=== PATIENT | male | born 2000 | race Caucasian/White ===

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

== ENCOUNTER 2024-05-30 08:00 | Outpatient (RCR) | payer BC, SELFPAY ==
--- NOTE | 2024-05-30 10:15 | BH.SGPN.GN ---
Behaviors/Verbalizations/Mental Status: []Pt alert and oriented, neatly dressed and groomed. Eye contact good. Motor activity appropriate. Speech within normal limits. Affect flat, mood depressed. Thoughts linear, logical, no signs of hallucinations or delusions. Client Response/Progress/Benefit: [] Pt engaged and participating in discussion at times, taking notes. Pt attentive during psychoeducation about the window of tolerance and noted personal connections. Group identified what contributes to low distress tolerance. The group gained awareness of the three zones of tolerance and pt was able to identify what they look like in each zone. Pt noted that in the hyperarousal zone pt gets confrontational and defensive. In Hypoarousal, pt shtus down. When pt is in the window of tolerance, Pt feels calm and feels he makes good decisions. Pt appeared to benefit from psychoeducation on distress tolerance and practicing self-reflection. Pt will continue IOP tx to prevent decompensation, improve daily functioning, and increase use of healthy coping skills. Narrative Note: []
--- NOTE | 2024-05-30 10:31 | BH.COMM ---
Communication Note Communication with Client Communication Note: Met with pt to complete initial paperwork and administer the CSSR-S screening and risk assessment. Pt is a moderate risk as pt denies any active SI, plan, or intent, but he has daily passive SI. Pt reports history of one suicide attempt about two years ago following a conflict with his girlfriend at the time. Pt reported he took ?a bunch of Ambien and drank almost an entire 750ml bottle of liquor.? Pt denies getting medical attention or hospitalized for this attempt. History of self-harm by cutting two years ago. Denies having any weapons at home. Pt is future oriented. Pt reports ability to maintain safety today. Discussed case with Dr. Christensen and pt will be admitted to [facility] tx with a diagnosis of Bipolar II disorder, most recent episode depressed without psychosis F 31.81
--- NOTE | 2024-05-30 10:31 | BH.MTP ---
Master Treatment Plan Patient Information Program Physician:: Dr. 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 Description of Barriers: Pt reports daily marijuana use, significant trauma history that continues to impact pt, and negative core beliefs. Pt also has history of impulsive behavior from [place] that has led to dropping out of college and legal issues. Pt also has history of cocaine and hallucingen use. Functional Impact: Pt is a 23 year-old male with a history of bipolar II disorder, anxiety, PTSD, and polysubstance use disorder. Pt was referred to [facility] by a family friend due to worsening symptoms of depression following the of pt's estranged father. Pt's symptoms have been impacting his ability to function and he recently had to drop out of college. At admission, pt endorses a depressed mood, excessive guilt, passive SI, lack of energy, lack of motivation, feeling like a burden, and anhedonia. Pt also reports irritability, restlessness, and isolation. Goal Relevant Strengths/Supports: Pt is sober from cocaine and hallucinogens. Pt is intelligent and has close friends. Objectives Objective #1: Stated Objective: Pt will learn and utilize 2-3 healthy coping strategies to better manage depressive symptoms and reduce suicidal ideations as shown by a decrease of DMS-5 symptoms for depression and SI. Interventions: Through group and individual sessions, therapist will help pt identify triggers and warning signs of depression and guilt including emotional, physical, and behavioral changes. Therapist will teach pt various coping skills to manage symptoms and give pt tangible resources to use to regulate emotions. Therapist will use cognitive restructuring techniques and help pt gain awareness of negative thoughts that reinforce guilt and depression. Therapist will provide psychoeducation on maintenance cycles and help pt learn ways to break unhealthy maintenance cycles. Therapist will help pt incorporate behavioral activation and assist pt in setting SMART goals. Discharge Criteria: Pt will have met this goal when can report learning and using at least 2 coping skills to manage depressive symptoms and reduce isolation. Additionally, pt will have met this goal when pt's DSM-5 scores for depression decrease. Target Date: 07/11/24 Review Date: 06/20/24 Status: open Objective #2: Stated Objective: Pt will identify at least 2-3 negative self-talk messages used to reinforce negative core beliefs, worthlessness, and isolation and replace thoughts with balanced, realistic messages. Interventions: Therapist will help pt identify distorted, negative beliefs about self and replace with more realistic, affirmative messages. Therapist will use CBT and DBT to help pt increase insight to the connection between thoughts, emotions, and behaviors. Therapist will encourage pt to practice thought challenging. Discharge Criteria: Pt will have achieved this goal when can verbalize at least 2 cognitive distortions and effectively replace those thoughts with affirmative messages. Target Date: 07/11/24 Review Date: 06/20/24 Status: open Problem/Goal #2 Problem/Goal #2 Stated Goal:: Will reduce intensity of anxiety and PTSD symptoms through increasing emotional regulation and distress tolerance skills Description of Barriers: Pt reports daily marijuana use, significant trauma history that continues to impact pt, and negative core beliefs. Pt also has history of impulsive behavior from [place] that has led to dropping out of college and legal issues. Pt also has history of cocaine and hallucingen use. Functional Impact: Pt is a 23 year-old male with a history of bipolar II disorder, anxiety, PTSD, and polysubstance use disorder. Pt was referred to [facility] by a family friend due to worsening symptoms of depression following the of pt's estranged father. Pt's symptoms have been impacting his ability to function and he recently had to drop out of college. At admission, pt endorses a depressed mood, excessive guilt, passive SI, lack of energy, lack of motivation, feeling like a burden, and anhedonia. Pt also reports irritability, restlessness, and isolation. Goal Relevant Strengths/Supports: Pt is sober from cocaine and hallucinogens. Pt is intelligent and has close friends. Objectives Objective #1: Stated Objective: Pt will increase ability to manage stressors and anxiety by gaining 2-3 distress tolerance skills. Interventions: Through group and individual therapy, pt will learn various coping skills to help manage stress and anxiety. Therapist will utilize DBT distress tolerance skills to increase awareness and give pt tools to more effectively manage anxiety. Therapist will provide psychoeducation on emotional regulation and help pt identify unhealthy coping skills she wants to change. Discharge Criteria: Pt will have accomplished this goal when can report improved ability to manage stressors and identify at least 2 distress tolerance skills. Target Date: 07/11/24 Review Date: 06/20/24 Status: open Objective #2: Stated Objective: Pt will identify 2-3 anxiety triggers and 2 coping skills to use when feeling anxious to manage anxiety as shown by reducing DSM-5 scores for anxiety Interventions: Therapist will provide education on anxiety, avoidance behaviors, and maintenance cycles. Therapist will help pt explore personal symptoms and warning signs of anxiety. Therapist will teach pt coping skills to improve emotional regulation, mindfulness, and distress tolerance to help pt cope with anxiety in the moment. Discharge Criteria: Pt will have accomplished this goal when he can identify at least 2 triggers and report using 2 coping skills to manage anxiety. Additionally, pt will have accomplished this goal AEB reduction of DSM-5 scores for anxiety. Target Date: 07/11/24 Review Date: 06/20/24 Status: open
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
--- NOTE | 2024-05-30 11:20 | BH.SGPN.GN ---
Behaviors/Verbalizations/Mental Status: []Pt alert and oriented, casually dressed and groomed. Eye contact good. Motor activity appropriate. Speech within normal limits. Affect congruent, mood anxious and depressed. Thoughts linear, logical, no signs of hallucinations or delusions. Client Response/Progress/Benefit: [] Pt first day on IOP, responded well to session AEB taking notes and contributing to discussion throughout. Pt engaged as group continued discussion on distress tolerance and the mental health benefits of widening their overall Window of Tolerance. Pt engaged with group in experiential activity provided input on connections between variables in the activity and distress tolerance. Worked within small groups to identify strategies to increase distress tolerance and reduce hyper-arousal and hypo-arousal states. Identified wanting to begin implementing distress tolerance skills of: edeep breathing, S.T.O.P.P, and showering. Pt appeared to benefit from gaining insight and learning strategies to increase distress tolerance. Pt will continue IOP tx to promote use of healthy coping skills, stabilize mood, and prevent decompensation. Narrative Note: []
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
--- NOTE | 2024-05-31 09:00 | BH.SGPN.GN ---
Behaviors/Verbalizations/Mental Status: [] Pt alert and oriented, casually dressed and groomed. Eye contact good. Motor activity appropriate. Speech within normal limits. Affect congruent, mood stressed and depressed. Thoughts linear, logical, no signs of hallucinations or delusions. Reviewed pt?s symptom tracker, no risk for suicidal ideation, plan, or intent 05/31/24 Client Response/Progress/Benefit: [] Pt was an active participant in group discussions. Attentive. Able to identify mental health wins including getting up and getting to group on time despite not being a morning person. Additional win noted as not allowing his frustration with car issues dictate his mood this morning. Shared use of deep breathing and thought challenging. Stressor noted as trying to get all of his things moved out of his dorm by tomorrow. Benefited from group support, encouragement, and feedback. Will continue in IOP to prevent decompensation, promote mood stability, and continue to improve use of thought challenging. Narrative Note: []
--- NOTE | 2024-05-31 10:45 | BH.NA_ITS ---
Physical Data Vital Signs Pulse Rate: 72 Blood Pressure: 123/63 Height/Weight Height: 1.73 m Weight:: 63.503 kg Weight in Pounds: 140.0 lbs Nutritional History Appetite Nutritional Instructions: Describe your appetite:: Fair Additional nutritional information:: Client states he has a decreased appetite and only eats 1 meal per day, but has not seen a change in his weight. Client states he has an ongoing issue with nausea at times and takes Zofran PRN. Functional Assessment Sleep Pattern Describe any problems with sleeping: Client states he sleeps 4-5 hours per night over the last week. Sensory/Communication Assess Communication Problems Do you have difficulty understanding what people are saying?: No Learning Assessment Education What is your level of education?: Some College Medical Problems/History Gastrointestinal Conditions Gastrointestinal: Nausea and Other (See comments) (GERD, potentially has gastroparesis) Pain Assessment Do you have acute or chronic pain?: No Surgical History Surgical History Have you had any surgeries? If so, list type and date:: Yes (wisdom teeth removal) Substance Abuse Substance Abuse Please describe substance abuse in the last 30 days:: Client states he drinks alcohol 1-2 times per week, usually 1-3 drinks each time (sometimes more drinks if he is with friends). Client states he has been vaping nicotine daily for 5-6 years. Client has a history of cocaine use but states he has not used in 3 years. Client uses marijuana daily, stating he used to use it during the day and evening but now only uses in the evening. Client drinks 1 caffeinated energy mixture in water daily. Mental Status Summary Mental Status Significant Findings/Observations on Appearance and Mood:: Client is alert and oriented x 4. Client is casually groomed. Client is cooperative with assessment. Client makes fair eye contact. Client's voice has normal rate and volume. Client has a mildly constricted. Client makes logical associations and has normal processing. Client states he has had delusions once in the past when manic, hearing his mom's voice when she was not there. Client denies active SI, denies plan/intent, but does admit to passive thoughts of (it would be better if I didn't wake up). Suicide Assessment Suicidal Ideation Are you currently or have you been suicidal in the past?: Yes Suicidal Intentional Rating Scale (SIRS): Suicidal thoughts (past) (passive thoughts of at times, denies intent or plan) Physician Notification Past Psychiatric History MH Treatment Hx Past Psychiatric Medications:: Client states he has been on many SSRI's and ADHD medications in the past, Tegretol, Zyprexa Age of first mental health symptoms: Client states he was first on medication or ADHD around age 6. Client states he was diagnosed as bipolar around age 20. Describe (age, circumstance, etc) any past hospitalizations: None, but did have one suicide attempt around 2021 (Ambien/alcohol). Current providers for mental health treatment (counselor, psychiatrist, immigration case manager, etc.): Abida Elias NP, at [facility] for psychiatry Fall Risk Assessment Age Age: Less than 60 Mental Status Mental Status: Willing & able to ask for assistance when needed Physical Status Physical Status: No problems Impairments Impairments: None Elimination Elimination: Continent AND independent Gait or Balance Gait or Balance: Walks independently Hx of Falls History of falls in the past 6 months: No known history Medications/Substances Psychotropics:: Mood stabilizers Medications/substances used within the past 24 hours or ordered to administer: 1-2 of the medications/substances listed above Total Score Total Points:: 1 RN Summary of Impressions Impressions Recommendations Impressions: Psychiatric Issues: 1. Bipolar 2 disorder (currently depressed) 2. Generalized anxiety disorder 3. PTSD 4. ADHD 5. 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 Level of Care How do the client's current symptoms and functional deficits support need for this level of care?: Client was referred to IOP by his mom for mental health. Client states he has been struggling some since February 2024 when his dad . Client states dad was a heroin user and he was estranged from him at the time of his . Client reports decreased appetite and decreased motivation since February. Client states he was failing his classes at the [employer] and had to drop out of college. Client denies active SI, but does report passive thoughts of why am I here? It would be better if I didn't wake up thoughts. IOP will promote gains and prevent further decompensation while providing social support and skills training.
--- NOTE | 2024-05-31 11:05 | BH.SGPN.GN ---
Behaviors/Verbalizations/Mental Status: []Client alert and oriented, casually dressed and groomed. Eye contact good. Motor activity appropriate. Speech within normal limits. Affect congruent, mood depressed. Thoughts linear, logical, no signs of hallucinations or delusions. Client Response/Progress/Benefit: [] Pt engaged in discussion reviewing different areas of self-care and completing self-assessment of current self-care, as well as providing input throughout discussion. Did well to complete self-care self-assessment worksheet. Pt identified how pt is doing in each category and what self-care activities pt wants to start using. Pt selected physical self-care to begin practicing more consistently. Pt plans to do this by ?I need to get active again and my diet is horrible.? Appeared to benefit from completing the self-care evaluation and gaining insights into current self-care practices, as well as identifying areas in which pt would like to improve upon. Pt will continue IOP tx to prevent decompensation, gain healthy coping skills, and improve daily functioning. ? Narrative Note: []
[2024-05-31 11:40] VITALS: BP 123/63; PULSE 72
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
--- NOTE | 2024-05-31 12:01 | BH.DR.ITP ---
Initial Treatment Plan Patient Information Visit Information: ADMISSION DATE: EXPECTED LOS: 4-6 weeks Problems/Symptoms Problem #1:: Depression Symptom:: Sadness, hopelessness, worthlessness, guilt, biological disruption of appetite, biological disruption of sleep, low energy, decreased concentration, passive thoughts of Problem #2:: Anxiety Symptom:: Worry, rumination, flashbacks, nightmares, avoidance
--- NOTE | 2024-06-02 09:00 | BH.SGPN.GN ---
Behaviors/Verbalizations/Mental Status: [] Eye contact is good. Motor activity is appropriate. Appearance is casual. Speech is Appropriate. Mood is depressed. Affect is congruent. Thoughts are linear and logical. No evidence of psychosis. Reviewed daily check in sheet and pt reports 1/5 for passive thoughts of and 0/5 for intent. Client Response/Progress/Benefit: [] Pt participated at times during the group discussions. Attentive. Daily symptom tracker notes 4/5 for depression and anxiety. Reports 3/5 for irritability and 1/5 for self-harm urges. I got everything done at college. According to pt he has moved all of his belonging out of his dorm at college. Pt dropped out recently due to stressors and mental health struggles. This was an anxiety inducing process as the college had significant triggers however was able to follow through. He discussed work and family stressors. First XMAS since his father and he is planning on seeing paternal family side. Progress noted. Benefited fro group support, encouragment, and feedback. Will continue in IOP to maintain safety, stabilize mood, and improve functioning. Narrative Note: []
--- NOTE | 2024-06-02 10:05 | BH.SGPN.GN ---
Behaviors/Verbalizations/Mental Status: []Pt alert and oriented, casually dressed and groomed. Eye contact good. Motor activity appropriate. Speech within normal limits. Affect congruent, mood depressed. Thoughts linear, logical, no signs of hallucinations or delusions. ? Client Response/Progress/Benefit: [] Pt responded well to session, attentive and engaged. Group participated in the discussion defining stigma as well as what stigma has kept pt's from doing in their lives. Pt stated mental health stigma has led pt to shut down and not share about his mental health with family and friends. Pt has also experienced discrimination at work when he got fired for having bipolar disorder. Pt worked with peers to begin discussion of what reinforces stigma, both socially and internally, and this was discussed further in the next group. Pt appeared to benefit from learning about the different types of stigma as well as gaining awareness of how stigma has personally impacted pt. Pt will continue IOP tx to prevent decompensation, increase use of healthy coping skills, and improve daily functioning. Narrative Note: []
--- NOTE | 2024-06-02 11:05 | BH.SGPN.GN ---
Behaviors/Verbalizations/Mental Status: []Pt alert and oriented, casually dressed and groomed. Eye contact good. Motor activity appropriate. Speech within normal limits. Affect congruent, mood euthymic. Thoughts linear, logical, no signs of hallucinations or delusions. Client Response/Progress/Benefit: [] Pt engaged participant AEB participating in the activity, providing input during small group discussion, and listening attentively to others. Pt appeared to connect with discussion in the benefits of addressing mental health stigma which included: improved relationships, increased willingness to seek help, increased happiness, and improved confidence. Group brainstormed strategies to combat social and perceived stigma. Pt identified that they can contribute to stigma by shutting down and not advocating for themselves.?Pt shared one thing pt can do to combat stigma is to acknowledge personal strengths and practice self-compassion. Appeared to benefit from increasing awareness of strategies to combat stigma. Pt is to continue IOP to promote use of healthy coping skills, continue to work on challenging distortions, and prevent decompensation.
--- NOTE | 2024-06-06 09:00 | BH.SGPN.GN ---
Behaviors/Verbalizations/Mental Status: [] Eye contact is good. Motor activity is appropriate. Appearance is casual. Speech is Appropriate. Mood is anxious and depressed. Affect is congruent. Thoughts are linear and logical. No evidence of psychosis. Reviewed daily check in sheet and no reports of suicidal ideations or intent. Client Response/Progress/Benefit: [] Pt participated at times during the group discussion. Attentive. Daily symptom tracker notes 4/5 for depression,anxiety, and agitation. Reports 2/5 for self-harm urges. Shared recent work stressors in which he reports being able to keep my calm. Along with calming skills was able to utilize assertive communication skills to as for help. Has an upcoming anxiety-producing stressors this afternoon which which he has to sit with uncomfortable feelings. Peers did well to reframe jo ann as an oppurtunitiy and offer suggestions to manage the anxiety and uncomfortable feelings.Progress noted. Benefited from group suppport, encouragement, and feedback. Will continue in IOP to prevent decompensation, increase healthy coping, and improve functioning. Narrative Note: []
--- NOTE | 2024-06-06 10:10 | BH.SGPN.GN ---
Behaviors/Verbalizations/Mental Status: []Pt alert and oriented, casually dressed and groomed. Eye contact good. Motor activity appropriate. Speech within normal limits. Affect congruent, mood anxious. Thoughts linear, logical, no signs of hallucinations or delusions. Client Response/Progress/Benefit: [] Pt was an active?participant in small group discussion. Pt?s group worked together to identify benefits of healthy relationships which included insight, accountability, and guidance. Group identified factors that lead to unhealthy relationships. Pt?s personal factors included past negative experiences, different expectations, and poor boundaries. Actively participated in group experiential activity and expressed ideas to group. Benefited from increased insight and awareness of benefits of healthy relationships and factors that contribute to unhealthy relationships. Will continue IOP tx to promote mood stability, increase positive self-talk, and improve daily functioning. Narrative Note: []
--- NOTE | 2024-06-06 11:10 | BH.SGPN.GN ---
Behaviors/Verbalizations/Mental Status: [] Pt alert and oriented, casually dressed and groomed. Eye contact good. Motor activity appropriate. Speech within normal limits. Affect full, mood euthymic, Thoughts linear, logical, no signs of hallucinations or delusions. Client Response/Progress/Benefit: [] Client responded well to session, engaged and taking notes throughout. Worked with group to connect components of the experiential activity with characteristics of healthy and unhealthy relationships. Attentive during psychoeducation about characteristics of healthy, unhealthy, and abusive relationships. Client reported he identifies doing well with respect and enjoying personal time when in a relationship. Appeared to benefit from identifying current healthy relationship attributes and an area client wants to work on to build healthier relationships. Client to continue IOP to increase consistent use of healthy coping skills, challenge negative thoughts, and prevent decompensation.
--- NOTE | 2024-06-07 09:00 | BH.SGPN.GN ---
Behaviors/Verbalizations/Mental Status: [] Client alert and oriented, casual appearance. Eye contact good. Motor activity appropriate. Speech within normal limits. Affect congruent, mood anxious. Thoughts linear, logical, no signs of hallucinations or delusions. Reviewed client's symptom tracker, no risk for suicidal ideation, plan, or intent. Client Response/Progress/Benefit: [] Client responded well to session AEB listening to others and sharing thoughts/feelings. Per daily symptom tracker client reports a 2.5/5 for depression and 3/5 for anxiety. Client reported mental positive as cooking for his family last night which is something he was doing. Client noted additional mental open as being able to financially support his sister when she needs some help. Client stated his current stressor is getting a new car because he recognizes his current car will not make it to next winter. Appeared to benefit from support from peers. Will continue IOP tx to increase consistent use of healthy coping skills, challenge distortions, and prevent decompensation. Narrative Note: []
--- NOTE | 2024-06-07 10:10 | BH.SGPN.GN ---
Behaviors/Verbalizations/Mental Status: [] Eye contact is good. Motor activity is appropriate. Appearance is casual. Speech is Appropriate. Mood is depressed/anxious. Affect is congruent. Thoughts are linear and logical. No evidence of psychosis. Client Response/Progress/Benefit: [] Pt participated at times during the interactive group discussions. Along with peers contributed to interactive discussion on defining what a boundary is in mental health. Pt along with peers identified challenges to setting boundaries which included; people pleasing, possible conflict, possible abandonment, fear of rejection, fear of loss, fear people won't respect the boundary, etc. Pt worked well in small group in which they identified different types of boundaries (material, sexual, intellectual, physical, emotional) and provided examples. Pt benefited from increased awareness and insight on the challenges to setting boundaries and the types of boundaries. Will continue in IOP to prevent decompensation, increase healthy coping, and improve functioning Narrative Note: []
--- NOTE | 2024-06-07 11:10 | BH.SGPN.GN ---
Behaviors/Verbalizations/Mental Status: []Eye contact is good. Motor activity is appropriate. Appearance is casual. Speech is Appropriate. Mood is dysthymic. Affect is congruent. Thoughts are linear and logical. No evidence of psychosis. Client Response/Progress/Benefit: []Pt responded well to session AEB listening attentively to peers and taking notes throughout. Reports connecting with porous boundaries within his family relationships and rigid boundaries at work. Participated in group discussion brainstorming various strategies for improving healthy boundary setting. Seemed to benefit from increased awareness of how different boundary styles can impact mental health. Will continue IOP tx to prevent decompensation, improve daily functioning, and increase mood stability. Narrative Note: []
--- NOTE | 2024-06-08 09:00 | BH.SGPN.GN ---
Behaviors/Verbalizations/Mental Status: []Pt alert and oriented, neatly dressed and groomed. Eye contact good. Motor activity appropriate. Speech within normal limits. Affect congruent, mood anxious. Thoughts linear, logical, no signs of hallucinations or delusions. Reviewed pt?s symptom tracker, no risk for suicidal ideation, plan, or intent 06/08/24 Client Response/Progress/Benefit: []Pt was an active participant in group discussions. Attentive. Able to identify mental health wins including getting a lot of household tasks accomplished and being more productive. Pt's stressor today is he has been working less hours which causes financial stress. Pt stated pt is feeling content this morning. Pt receptive to feedback from peers which pt reported was helpful. Progress noted. Benefited from group support, encouragement, and feedback. Will continue in IOP to increase self-compassion, reduce negative thinking patterns, and improve daily functioning. Narrative Note: []
--- NOTE | 2024-06-08 10:10 | BH.SGPN.GN ---
Behaviors/Verbalizations/Mental Status: []Pt alert and oriented, neatly dressed and groomed. Eye contact good. Motor activity appropriate. Speech within normal limits. Affect congruent, mood euthymic. Thoughts linear, logical, no signs of hallucinations or delusions. Client Response/Progress/Benefit: [] Pt was an engaged participant AEB listening attentively to others, taking notes, and providing feedback in small group discussions. Attentive during psychoeducation AEB by note taking and providing some input. Pt worked along with peers in small groups to define inappropriate guilt and appropriate guilt. Worked well in small group with peers where they identified example of inappropriate vs appropriate guilt, and the impact inappropriate guilt can have on MH. Pt identified a personal example of inappropriate guilt as ?feeling bad for setting boundaries with toxic family.? Benefited from increased awareness of guilt and the differences between appropriate and inappropriate guilt. Plan is to continue in IOP to reduce negative thinking patterns, improve daily functioning, and increase distress tolerance. Narrative Note: []
--- NOTE | 2024-06-08 14:11 | BH.MDN_ITS ---
Multi-Disciplinary Note Note 30-min Individual: Time Started:: 11:40 Date: 06/08/24 Purpose of session/treatment goals addressed:: To work on goal #2 of pt's tx plan. Eye Contact:: Good Motor Activity:: Appropriate Appearance:: Neat Speech:: Appropriate Mood:: Anxious and Depressed Affect:: Constricted Thoughts:: Linear, Logical and No evidence of hallucinations/delusions noted Staff Interventions:: thought challenging, motivational interviewing, psychoeducation on: (c-ptsd), CBT techniques, strengths perspective and other Client Response:: Pt responded well to session, open to meeting with therapist. Pt shared that today was a good day to meet because the topic in group was guilt and pt stated he has a lot of guilt. Pt stated his family usually goes to [place] every year for Summer, but pt does not want to go and he is thinking about setting this boundary. Pt shared the family they go to see were not supportive or there for pt when his dad and pt is worried that if he goes he will go off. Pt reports he has a history of anger outbursts, but he is getting better with managing these. Pt shared it takes a lot to get me to that point, but when I get there I don't care what I say. Pt has been in many situations growing up where he has had consequences for his outbursts and he wants to change this. Pt shared he thinks his mom and sister will be upset with him and he is worried his grandma will be too, but pt was able to challenge these anxious thoughts. Pt stated past evidence has shown that his grandma will be supportive and that it is best for pt to keep himself out of unnecessary conflict. Pt receptive to learning about c-ptsd as some of pt's anger outbursts can be described him c-ptsd. Pt was given a handout and pt shared he wanted to read it on his own for homework. Risks/Concerns:: Pt denies any suicidal ideations, plan, or intent. Pt denies any thoughts of . Progress Toward Goals/Plan:: Pt reports his symptoms are ongoing, but he is enjoying IOP so far. Pt's anxiety, rumination, and mood instability continue to impact pt's daily functioning. Pt is also working on how to manage his c-ptsd and grief from losing his father earlier this year. Pt will continue IOP tx to prevent decompensation, improve daily functioning, and increase self-compassion. Time Stopped:: 12:15
--- NOTE | 2024-06-12 09:00 | BH.SGPN.GN ---
Behaviors/Verbalizations/Mental Status: [] Client alert and oriented, casual appearance. Eye contact good. Motor activity appropriate. Speech within normal limits. Affect congruent, mood anxious. Thoughts linear, logical, no signs of hallucinations or delusions. Reviewed client's symptom tracker, no risk for suicidal ideation, plan, or intent. Client Response/Progress/Benefit: [] Client responded well to session AEB listening to others and sharing thoughts/feelings. Per daily symptom tracker client reported a 3.5/5, with 5 representing severe, for depression and a 3/5 for anxiety. Client reported mental health positive as setting a boundary with his family from out of state that he won't be going to family [place] this year so he can focus on his mental health. Client stated he does feel a little guilty about not going to see some of his family, but knows it's the best for his mental health. Client reported current stressor as needing to make money to make up for his spending on gifts for [employer]. Appeared to benefit from support from peers. Will continue IOP tx to increase use of healthy coping skills, challenge negative/distorted thoughts, and prevent decompensation.
--- NOTE | 2024-06-12 10:10 | BH.SGPN.GN ---
Behaviors/Verbalizations/Mental Status: [] Client alert and oriented, casually dressed and groomed. Eye contact good. Motor activity appropriate. Speech within normal limits. Affect congruent, mood euthymic, Thoughts linear, logical, no signs of hallucinations or delusions Client Response/Progress/Benefit: [] Client responded well to session, contributing to discussion and engaged during the activity. Group identified the benefits of change which included: personal growth, increased confidence, improving mental health, progressing, and becoming resilient. Worked with the group to identify barriers to change, which included: fear of failure, lack of motivation, fear of the unknown, trauma, and negative thinking. Client participated along with group in activity where they discussed the emotions related to change. Benefited from increased awareness and understanding of emotions, benefits, and barriers related to change. Will continue IOP tx to increase functioning and prevent decompensation. Narrative Note: []
--- NOTE | 2024-06-12 11:10 | BH.SGPN.GN ---
Behaviors/Verbalizations/Mental Status: [] Client alert and oriented, casually dressed and groomed. Eye contact good. Motor activity appropriate. Speech within normal limits. Affect full, mood euthymic, Thoughts linear, logical, no signs of hallucinations or delusions. Client Response/Progress/Benefit: [] Client responded well to session, attentive. Did well to process activity and work with group to relate the strategies used to overcome barriers in the activity to managing change in own life. Client identified a change they would like to make is making more positive steps to better himself. Client identified currently being in preparation stage for this particular change. Client stated goal is to make plans to go to college or trade school. Appeared to benefit from identifying a small goal to work towards. Client will continue IOP tx to prevent decompensation and increase overall functioning.
--- NOTE | 2024-06-13 09:00 | BH.SGPN.GN ---
Behaviors/Verbalizations/Mental Status: []Pt alert and oriented, neatly dressed and groomed. Eye contact good. Motor activity appropriate. Speech within normal limits. Affect congruent, mood anxious. Thoughts linear, logical, no signs of hallucinations or delusions. Reviewed pt?s symptom tracker, no risk for suicidal ideation, plan, or intent 06/13/24 Client Response/Progress/Benefit: []Pt was an active participant in group discussions. Attentive. Able to identify mental health wins including making it to IOP today and recently having a good time with his family. Pt's stressor today is that he chose not to go to [place] with his family for the holiday, which pt reported was a good thing, but this means pt has to sit with the uncomfortable that comes with setting boundaries. Pt stated pt is feeling stressed this morning. Pt receptive to feedback from peers which pt reported was helpful. Progress noted. Benefited from group support, encouragement, and feedback. Will continue in IOP to reduce negative thinking patterns, improve daily functioning, and increase distress tolerance skills. Narrative Note: []
--- NOTE | 2024-06-13 10:15 | BH.SGPN.GN ---
Behaviors/Verbalizations/Mental Status: []Eye contact is fair. Motor activity is appropriate. Appearance is casual. Speech is Appropriate. Mood is content. Affect is congruent. Thoughts are linear and logical. No evidence of psychosis. Client Response/Progress/Benefit: []Pt receptive of session, actively engaged throughout AEB taking notes, providing input, and contributing in small group discussion. Appeared to connect with group topic of automatic thoughts and cognitive distortions, as well as the impact of thought patterns on mental health, coping behaviors, and relationships. This particular group is very heavy on psychoeducation and pt appeared to connect with distortions and how they can impact functioning. Identified struggling with over-generalizing especially at work and with minimizing his symptoms. Pt appeared to benefit from gaining insight on distorted thinking patterns and how this impacts overall mental health. Will continue IOP to increase healthy coping, challenge perspective, and prevent decompensation. Narrative Note: []
--- NOTE | 2024-06-13 13:40 | BH.MDN_ITS ---
Multi-Disciplinary Note Note 45-min Individual: Time Started:: 11:35 Date: 06/13/24 Purpose of session/treatment goals addressed:: To work on goal #1 of pt's tx plan. Eye Contact:: Good Motor Activity:: Appropriate Appearance:: Casual Speech:: Appropriate and Rambling Mood:: Anxious Affect:: Congruent Thoughts:: Linear, Logical and No evidence of hallucinations/delusions noted Staff Interventions:: thought challenging, motivational interviewing, CBT techniques, strengths perspective and taught coping skills (dialectical thinking) Client Response:: Pt responded well to session, open to meeting with therapist. Pt reports that he is feeling very anxious this morning because pt has made the decision to stay in [place] instead of traveling to visit family this [place]. Pt shared the family they visit are not good people and that he is worried if he goes he will get into an altercation and regret something. Pt recognizes that the guilt he feels is mostly inappropriate as pt wants to avoid unnecessary conflict and decompensation of his mental health. Pt also stated that he has been wanting to set boundaries with these family members since they were not there for me when my dad . Pt shared he also feels guilty because some of them aren't bad, like my grandma and some cousins. Pt stated he could address this by reaching out to those people and letting them know why. Pt was able to combat his inappropriate guilt using dialectical thinking and reminding himself why these boundaries are important. Pt stated his mother and his sister will understand and he is glad he did not go back on his boundary. Risks/Concerns:: Pt denies any suicidal ideations, plan, or intent. Pt denies any thoughts of . Progress Toward Goals/Plan:: Pt reports benefitting from IOP as he is gaining insight from peers and finding the group topics helpful. Pt reports his anxiety, negative thinking, and depression still impact him but pt feels he is learning valuable skills. Pt's biggest stressor right now is the holidays and setting boundaries with his family. Pt will continue IOP tx to prevent decompensation, improve daily functioning, and increase self-compassion. Time Stopped:: 12:15
--- NOTE | 2024-06-15 09:05 | BH.SGPN.GN ---
Behaviors/Verbalizations/Mental Status: [] Eye contact is good. Motor activity is appropriate. Appearance is casual. Speech is Appropriate. Mood is anxiety/depressed. Affect is congruent. Thoughts are linear and logical. No evidence of psychosis. Reviewed daily check in sheet and no reports of suicidal ideations or intent. Client Response/Progress/Benefit: [] Pt was an active participant in group discussions. Attentive. Daily symptom tracker noted 4/5 for depression and anxiety. Also reports 3/5 for anger. I kept my cool yesterday while at a holiday meal. Briefly elaborated on events and thoughts which caused anger and frustration. He also shared the skill that he utilized to manage anger. He stepped away and started to review the causes to his anger (anger buttons) which he finds helpful. Overall was able to identify anger inducing thoughts and event then implement skills. Progress noted. Will continue in IOP to prevent decompensation, stabilize mood, and improver functioning. Narrative Note: []
--- NOTE | 2024-06-15 10:10 | BH.SGPN.GN ---
Behaviors/Verbalizations/Mental Status: []Patient was alert and oriented, casually dressed and groomed. motor activity congruent. speech within normal limits. Affect congruent, mood anxious. Thoughts linear, logical, no signs of hallucinations or delusion. Client Response/Progress/Benefit: []Pt participated in the group discussions AEB nodding and taking notes. Attentive during psychoeducation Goal Setting. Participated during the discussion on common barriers. Pt stated a personal barrier to accomplishing goals are judgment of self that goals aren't hard enough and self-doubt. Group also identified benefits of goals as sense of purpose, improved self-confidence, more motivation for other goals, and improved mental health. Pt identified personal benefits to goal setting. Benefited from increased awareness of mental health benefits of goals as well as psychoeducation on SMART goal criteria. Will continue in IOP to challenge negative thoughts, increase use of opposite action, and prevent decompensation.
--- NOTE | 2024-06-15 11:10 | BH.SGPN.GN ---
Behaviors/Verbalizations/Mental Status: [] Pt alert and oriented. Appearance is neat. Eye contact good. Motor activity appropriate. Speech within normal limits. Affect is depressed. Mood is congruent. Thoughts linear, logical, no signs of hallucinations or delusions. Client Response/Progress/Benefit: [] Pt was engaged during discussion and experiential activity. Completed the worksheet challenging them to develop a personal SMART goal. Pt chose a SMART goal related to returning to college next semester. Believes that obtaining a degree will improve his self-esteem. Identified obstacles such as isolation and self-doubt. Benefited from this group by developing a short-term SMART goal related to mental health. Will continue IOP to prevent decompensation, increase healthy coping, and maintain safety. Narrative Note: []
--- NOTE | 2024-06-15 11:32 | PCM.BH.PN ---
Progress Note Progress Note: History of Present Illness/Interim History: The patient is a 23-year-old single male with a history of bipolar 2 disorder, depression, anxiety, PTSD, ADHD and cocaine/hallucinogen use disorder (in remission for 7 months) who is seen in follow-up at the [facility] behavioral health IOP. I last saw the patient 2 weeks ago and at that time Vraylar was added to his medication regimen along with his Lamictal. Patient states that he took it for a while but he has felt that the Vraylar made him dizzy so he stopped it 3 days ago. He states that the Lamictal makes him somewhat dizzy also but he feels that it is helping him but he could not take the extra dizziness caused by the Vraylar so discontinued. According to staff patient has been consistent in his attendance and engaged in the program. He did not get his blood work he had even though he admits that his mother does have thyroid issues and he agrees to get that in the next few days. His symptoms remain essentially unchanged and endorsing sadness, hopelessness, mild anhedonia, and wanting to sleep more, low energy, decreased concentration, guilt over his estrangement with his father before he . He has occasional passive thoughts of but denies suicidal ideation, plan for suicide, homicidal ideation, hallucinations or delusions. He is a worrier by nature and ruminates negatively. He denies any symptoms of hypomania currently. Current Psychiatric Medications: [] Lamictal 150 mg p.o. twice daily (x 2 years); Vraylar 1.5 mg p.o. daily but patient discontinued 3 to 4 days ago due to dizziness. Mental Status Examination: [] Patient is a 23-year-old male who appears normal for stated age is casually dressed and groomed with good hygiene. He has no psychomotor agitation or retardation. Eye contact is good and speech is normal rate and rhythm and fluent with no pressure. He is cooperative during the interview. Mood is depressed. Affect is mildly constricted. Thought content: There is evidence of passive passive thoughts of and regret and guilt over being estranged from his father before he . There is no evidence of suicidal ideation, plan for suicide, homicidal ideation, hallucinations, delusions or symptoms of tika or hypomania. Reality testing is intact. Intelligence is above average. Judgment is intact. Insight fair. Impulsivity moderate. Diagnoses: [] 1. Bipolar 2 disorder (currently depressed) 2. Generalized anxiety disorder 3. PTSD 4. ADHD 5. 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 He felt safe during the interview and he agrees that if it anytime he does not feel safe he will let us know or go to the emergency room. The risk, options, possible complications and side effects of the medications were discussed with the patient and he understands accepts these. He agrees to try results he 0.5 mg p.o. daily and prescription is sent in for this. He agrees to get his blood work as soon as possible. He discussed possibly wanting to get [facility] to figure out which meds he would tolerate better and he is encouraged to do this. He will continue to follow-up with his outpatient providers and I will see the patient in follow-up in several weeks. He will remain sober from all drug use.
--- NOTE | 2024-06-20 09:05 | BH.SGPN.GN ---
Behaviors/Verbalizations/Mental Status: [] Pt alert and oriented, casually dressed and groomed. Eye contact good. Motor activity appropriate. Speech within normal limits. Affect congruent, mood dysthymic. Thoughts linear, logical, no signs of hallucinations or delusions. Reviewed pt?s symptom tracker, no risk for suicidal ideation, plan, or intent 05/31/24 Client Response/Progress/Benefit: [] Pt was an active participant in group discussions. Attentive. Able to identify mental health wins including use of opposite action to engage in activities he enjoys despite not feeling like it at the time. Reports feeling proud of himself for doing so and not feeding into the desire to isolate. Additional win noted as being present for a friend who was struggling with his mental health over the weekend and advocating for this friend to their other friends. Pt reports this is also a stressor as he is concerned for this friend and is trying to be a support while also taking time to focus on his own mental health needs. Benefited from group support, encouragement, and feedback. Will continue in IOP to prevent decompensation, promote mood stability, and continue to improve use of behavior activation skills. Narrative Note: []
--- NOTE | 2024-06-20 10:10 | BH.SGPN.GN ---
Behaviors/Verbalizations/Mental Status: [] Eye contact is fair. Motor activity is appropriate. Appearance is casual. Speech is Appropriate. Mood is euthymic. Affect is congruent. Thoughts are linear and logical. No evidence of psychosis. Client Response/Progress/Benefit: [] Pt was an active participant in group discussions. Attentive during psychoeducation. Contributed during interactive discussions in which peers attempted to define crisis. Group identified crisis examples. Group also worked together to identify warning signs and unhealthy responses to crisis which included shutting down, isolation, avoidance, over-thinking, disordered eating, and self-harm. Pt identified top 3 warning signs as: isolation, wanting to use drugs, and apathy. Benefited from increased understanding of crisis and awareness of personal responses to crisis. Pt will continue IOP tx to increase use of healthy coping skills, challenge distorted thoughts, and prevent decompensation.
== END 2024-06-20 23:59 ==
LOC: BHIOP 08:00
PROVIDERS: PCP Pediatrics; Referring Provider Psychiatry & Neurology Psychiatry; Visit Provider Psychiatry & Neurology Psychiatry
DX: F31.81 Bipolar II disorder (principal); F41.1 Generalized anxiety disorder; F43.10 Post-traumatic stress disorder, unspecified; F90.9 Attention-deficit hyperactivity disorder, unspecified type; F12.90 Cannabis use, unspecified, uncomplicated; F14.21 Cocaine dependence, in remission
CPT/HCPCS: S9480; 90832; 90834; 90853

== ENCOUNTER 2024-06-22 07:07 | Outpatient (RCR) | payer BC, SELFPAY ==
[2024-06-21 00:29] VITALS: BP 123/63; PULSE 72
--- NOTE | 2024-06-22 10:10 | BH.SGPN.GN ---
Behaviors/Verbalizations/Mental Status: [] Eye contact is good. Motor activity is appropriate. Appearance is casual. Speech is Appropriate. Mood is dysthymic. Affect is congruent. Thoughts are linear and logical. No evidence of psychosis. Client Response/Progress/Benefit: [] Pt was an active participant in group discussion. Engaged and attentive during psychoeducation and interactive discussion on coping skills, why people use unhealthy coping skills, how to replace unhealthy coping skills, and internal vs external coping skills. Attentive as peers came up with list of unhealthy coping skills. Group discussed the effects of maladaptive coping skills on mental health. Benefited from increased understanding of unhealthy coping skills and the need for developing healthy internal and external coping skills. Actively participated during experiential group activity and was able to related this activity to group topic. Will continue in IOP to prevent decompensation, stabilize mood, and improve functioning.
--- NOTE | 2024-06-22 13:39 | BH.MDN_ITS ---
Multi-Disciplinary Note Note 45-min Individual: Time Started:: 11:45 Date: 06/22/24 Purpose of session/treatment goals addressed:: To address current stressors and identify strategies to improve those stressors. Eye Contact:: Good Motor Activity:: Restless Appearance:: Casual Speech:: Appropriate and Rambling Mood:: Anxious and Irritable Affect:: Congruent Thoughts:: Linear, Logical and No evidence of hallucinations/delusions noted Staff Interventions:: thought challenging, motivational interviewing, CBT techniques, strengths perspective and taught coping skills (discussed conflict resolution skills.) Client Response:: Pt responded well to session, open to meeting with therapist. Pt reports he is doing okay overall, but there are things that having been bothering pt a lot at home that pt wants to address. Pt lives with his mom, sister, and stepfather and pt stated that his parents have not been very present in pt or his sister's lives. Pt shared they are like iPad kids and that this makes pt want to return to isolating and avoiding them. Pt stated his sister has been frustrated about this as well and they have tried to talk to them in the past, but no changes have been made. Pt shared he is trying to avoid becoming yang and pissing them off on purpose which pt claims he has done in the past. Pt recognizes that this is self-destructive behavior and he wants to avoid this. Pt benefitting from verbally processing his emotions and he was receptive to ideas for conflict resolution and communication techniques. Pt stated that his mom not listening to him and making time to talk with him upsets him the most. Pt shared his mom told him that she supports him, but pt wants to build on their relationship. Pt receptive to sharing more specific directions with mom, for example, pt wants to have dinner together more. Pt feels he could talk with his mother about this after group today. Risks/Concerns:: Pt denies any suicidal ideations, plan, or intent. Pt denies any thoughts of . Progress Toward Goals/Plan:: Pt continues to report benefitting from IOP tx and he reports improvement in regulating his emotions. Pt has ongoing st ressors with his family that impact his mood instability, but pt shared he is trying to work on this. Pt will continue IOP tx to prevent decompensation, improve daily functioning, and increase distress tolerance. Time Stopped:: 12:30
--- NOTE | 2024-06-22 15:25 | BH.MTP_ITS ---
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 Pt is engaged in group sessions AEB completing worksheets, taking notes, giving feedback. Pt's overall DSM-5 scores have decreased by 16% since admission and his anger is down 33%. Pt is working on distress tolerance and increasing self- confidence. Status of Current Problems and Symptoms: Pt's overall symptoms have decreased since admission, but pt's anxiety and depression scores are the same since admission. Stressors include figuring out if he wants to return to college, family stress, and holiday stress. Pt also has unresolved emotions following his father's and has been coping with grief. Progress Problem #1: Problem Name:: Depression and negative thinking patterns Status of Goals:: Objective 1- not complete. Pt's DSM-5 scores for depression have not decreased since admission. Pt does report that the structure of IOP has helped him and he is happy with how consistent his attendance has been. Objective 2- in progress. Pt has learned about the different cognitive distortions as well as core beliefs that his view of self. Pt is working on not minimizing his problems and not labeling himself. Team Recommendations:: Team recommends continue work on goals as pt's depression has no decreased since admission. Pt continues to struggle with isolation and negative self-talk. Pt also encouraged to communicate with supports and begin challenging distortions. Problem #2: Problem Name:: Anxiety and PTSD Status of Goals:: Objective 1- in Progress. Pt is able to identify distress tolerance skills and when he has urges to engage in unhealthy coping skills. Pt is working on using these more consistently. Objective 2- not complete. Pt's DMS-5 scores have not decreased for anxiety since admission. Team Recommendations:: Team recommends continued goals and objectives to reinforce skills and reduce symptoms. Team recommends pt continue working on using skills consistently, so they become more habitual and to practice acceptance to avoid more conflict.
--- NOTE | 2024-06-23 09:05 | BH.SGPN.GN ---
Behaviors/Verbalizations/Mental Status: [] Eye contact is good. Motor activity is appropriate. Appearance is casual. Speech is Appropriate. Mood is anxious and depressed. Affect is congruent. Thoughts are linear and logical. No evidence of psychosis. Reviewed daily check in sheet and no reports of suicidal ideations or intent. Client Response/Progress/Benefit: [] Pt was an active participant in group discussions. Attentive. Daily symptom tracker notes 4/5 for anxiety and 3/5 for depression. Practicing opposition-action, boundary setting, and assertive communication skills. Discussed recent examples of when he has used these skills. Progress noted. Benefited from group support, encouragement, and feedback. Will continue in IOP to prevent decompensation, stabilize mood, and improve functioning. Narrative Note: []
--- NOTE | 2024-06-23 10:10 | BH.SGPN.GN ---
Behaviors/Verbalizations/Mental Status: [] Eye contact is good. Motor activity is appropriate. Appearance is casual. Speech is Appropriate. Mood is anxious. Affect is congruent. Thoughts are linear and logical. No evidence of psychosis. Client Response/Progress/Benefit: [] Pt receptive to session AEB listening attentively to others and taking notes. Pt attentive and contributed throughout psychoeducation on the cognitive triangle and maintenance cycles. Pt engaged during group discussion reviewing the impact of daily activities and behaviors in either reinforcing unhealthy maintenance cycles and depression or assisting in reducing symptoms (?down? vs ?up? activities). Pt participated during interactive discussion in which peers identified common up activities (pets, sports, positive media, self-care, hobbies, and positive support) and down activities (isolation, being unproductive, ruminating, drugs/alcohol, sad music, sleeping more, unhealthy eating). Appeared to benefit from increased awareness of current behaviors and impact these have on mental health. Will continue IOP to improve mood stability, prevent decompensation, and increase healthy coping. Narrative Note: []
--- NOTE | 2024-06-23 11:15 | BH.SGPN.GN ---
Behaviors/Verbalizations/Mental Status: []Eye contact is good. Motor activity is appropriate. Appearance is casual. Speech is Appropriate. Mood is euthymic. Affect is congruent. Thoughts are linear and logical. No evidence of psychosis. Client Response/Progress/Benefit: [] Pt responded well to session, attentive and engaged in group discussions and activity. Actively engaged in continued discussion about up activities and down activities. Active participant as group discussed values and the benefits that knowing one's values can have on one's mental health. Pt completed personal cognitive triangle negative loop. Pt shared value would like to improve is mental/emotional health. Pt set opposite action goal to make plans with a friend for next Wednesday. Benefited from increased awareness of their personal values and how incorporating their values into behavioral activation goals can positive impact mental health. Will continue in IOP to reinforce healthy coping skills, challenge distortions, and prevent decompensation.
--- NOTE | 2024-06-27 09:05 | BH.SGPN.GN ---
Behaviors/Verbalizations/Mental Status: [] Eye contact is good. Motor activity is appropriate. Appearance is casual. Speech is Appropriate. Mood is anxious/depressed. Affect is congruent. Thoughts are linear and logical. No evidence of psychosis. Reviewed daily check in sheet and no reports of suicidal ideations or intent. Client Response/Progress/Benefit: [] Pt was an active participant in group discussions. Attentive. Daily symptom tracker notes 4/5 anxiety and 3/5 for depression/irritability. Emotion is ?content?. He was able to identify several mental health wins and progress. ?I had a good weekend at work?. Beginning to find pleasure in activities again. Stress related to his future goals. States that he had been struggling for months stating ?I fell flat on my face when my dad ? which led to decompensation of mental health. Benefited from group support, encouragement, and feedback. Will continue in IOP to prevent decompensation, stabilize mood, and increase healthy coping. Narrative Note: []
--- NOTE | 2024-06-27 10:10 | BH.SGPN.GN ---
Behaviors/Verbalizations/Mental Status: [] Eye contact is good. Motor activity is appropriate. Appearance is casual. Speech is Appropriate. Mood is euthymic. Affect is congruent. Thoughts are linear and logical. No evidence of psychosis. Client Response/Progress/Benefit: [] Pt was an active participant during group discussions and group activities. This portion of group was very psychoeducation heavy and pt was attentive during psychoeducation. Engaged during activity in which they identified which type of foods (i.e. carbs, sugar, salt, fast food, caffeine, etc) they seek out when sad, tired, angry, stressed, anxious, etc. Pt was able to identify the impact that certain foods have on their mental health through group example which was beneficial. Benefited from increased awareness of the connection between nutrition and mental health. Will continue in IOP to promote use of healthy coping skills, challenge distortions, and prevent decompensation.
--- NOTE | 2024-06-27 14:30 | BH.MDN_ITS ---
Multi-Disciplinary Note Note 45-min Individual: Time Started:: 11:32 Date: 06/27/24 Purpose of session/treatment goals addressed:: To work on triggers for grief and trauma as well as identify and combat negative self-talk. Eye Contact:: Good Motor Activity:: Appropriate Appearance:: Casual Speech:: Appropriate and Rambling Mood:: Euthymic and Anxious Affect:: Congruent Thoughts:: Linear, Logical and No evidence of hallucinations/delusions noted Staff Interventions:: thought challenging, motivational interviewing, CBT techniques, mindfulness skills, strengths perspective and other (self-compassion and acceptance) Client Response:: Pt responded well to session, open to meeting with therapist. Pt talked about several stressors bothering him currently including a recent argument with his mother. Pt shared he continues to feel frustrated by the lack of change in his interactions with his mom and stepdad. Pt stated his mom has also been asking pt about his plans for the future and pt feels lost. Pt shared his mom and stepdad want him to return to college, but pt feels that college is not the best place for him. Pt does not feel like he gets pushed enough academically and pt reports belief that he would push himself more on his own. Pt has ideas for his future, but he is afraid to pursue them due to negative feedback from his parents. Pt stated he also notices that he doubts himself and his abilities as well which prevents pt from pursuing goals. Pt stated I think I need to address the unresolved shit with my dad as pt believes this is also contributing to pt's difficulty moving forward and his self-doubt. Pt recognizes that he tends to minimize things, including his trauma, and that this could be contributing to his minimization of other things in his life. Pt receptive to this and receptive to bringing the worksheet on c- ptsd to next session. Pt also encouraged to cook today as pt stated he enjoys this and it keeps pt social at home. Risks/Concerns:: Pt denies any suicidal ideations, plan, or intent. Pt denies any thoughts of . Progress Toward Goals/Plan:: Pt continues to report benefitting from IOP tx and he reports improvement in regulating his emotions. Pt reports more consistently using healthy coping skills and an improved ability to regulate stress. Pt wants to work on resolved stuff with my dad referring to grief and trauma. Pt is also receptive to working on self-compassion as pt has numerous negative core beliefs. Pt will continue IOP tx to prevent decompensation, improve daily functioning, and increase distress tolerance. Time Stopped:: 12:19
--- NOTE | 2024-06-28 09:05 | BH.SGPN.GN ---
Behaviors/Verbalizations/Mental Status: []? Pt alert and oriented, casually dressed and groomed. Eye contact good. Motor activity appropriate. Speech within normal limits. Affect congruent, mood euthymic. Thoughts linear, logical, no signs of hallucinations or delusions. Reviewed pt?s symptom tracker, no risk for suicidal ideation, plan, or intent 06/28/24.? ? Client Response/Progress/Benefit: []Pt was an active participant in group discussions. Attentive. Able to identify mental health wins including finding enjoyment in hobbies, specifically video games with friends again. Additional win noted as getting getting here despite having car issues. Pt's stressor today is?feeling frustrated that on old injury is preventing him from being able to do everything he would like to when working out. Receptive of group suggestions. Pt receptive to feedback from peers which pt reported was helpful. Progress noted. Benefited from group support, encouragement, and feedback. Will continue in IOP tx to prevent decompensation, promote mood stability, and increase self-compassion.? Narrative Note: []
--- NOTE | 2024-06-28 10:10 | BH.SGPN.GN ---
Behaviors/Verbalizations/Mental Status: [] Eye contact is good. Motor activity is appropriate. Appearance is casual. Speech is Appropriate. Mood is euthymic. Affect is congruent. Thoughts are linear and logical. No evidence of psychosis. Client Response/Progress/Benefit: [] Pt was an active participant in group discussions. Attentive during psychoeducation on the 4 communication styles (Passive, Passive-Aggressive, Aggressive, and Assertive) and the obstacles to effective communication. ?Self-identified a barrier they personally struggle with as becoming apathetic to issues so he avoids talking about them. Contributed during interactive discussion on the benefits of communicating effectively which included; having one's needs met, decreases stress and uncertainty, improved relationships, healthier boundaries, and avoids unnecessary conflict. Worked well with peers to identify the benefits and disadvantages to the different communication styles. Benefited from increased understanding of communication styles and how these can impact effective communication. Will continue in IOP to prevent decompensation, reduce negative thinking patterns, and improve daily functioning. Narrative Note: []
--- NOTE | 2024-06-28 11:10 | BH.SGPN.GN ---
Behaviors/Verbalizations/Mental Status: []Pt alert and oriented, casually dressed. Eye contact good. Motor activity appropriate. Speech within normal limits. Affect congruent, mood euthymic. Thoughts linear, logical, no signs of hallucinations or delusions. Client Response/Progress/Benefit: [] Pt responded well to session AEB Pt listening attentively to others and providing input during group discussion on the pay offs and costs of the different communication styles. Pt able to connect how current communication style impacts mental health. Connected with peers? comments about importance of using assertive communication. Pt did well with practicing being assertive in the group activity and worked with group to identify potential skills for improving communication skills. Pt seemed to benefit from increasing awareness of healthy strategies to improve communication. Will continue IOP tx to promote healthy coping skills, increase confidence, and prevent decompensation.
--- NOTE | 2024-06-29 09:05 | BH.SGPN.GN ---
Behaviors/Verbalizations/Mental Status: [] Pt alert and oriented, neatly dressed and groomed. Eye contact good. Motor activity appropriate. Speech within normal limits. Affect congruent, mood euthymic. Thoughts linear, logical, no signs of hallucinations or delusions. Reviewed pt?s symptom tracker, no risk for suicidal ideation, plan, or intent 06/29/24. Client Response/Progress/Benefit: []Pt was an active participant in group discussions. Attentive. Able to identify mental health wins including getting to group today despite feeling low and continuing with his search for a car. Pt's stressor today is he got into an argument with his mother last night and it took away all my motivation. Pt stated pt is feeling content this morning. Pt receptive to feedback from peers which pt reported was helpful. Progress noted. Benefited from group support, encouragement, and feedback. Will continue in [facility] tx to increase mood stability, reduce negative thinking patterns, and improve daily functioning. Narrative Note: []
--- NOTE | 2024-06-29 10:15 | BH.SGPN.GN ---
Behaviors/Verbalizations/Mental Status: [] Eye contact is good. Motor activity is appropriate. Appearance is casual. Speech is Appropriate. Mood is euthymic. Affect is congruent. Thoughts are linear and logical. No evidence of psychosis. Client Response/Progress/Benefit: [] Pt engaged participant AEB listening to others, engaging in activity, and providing feedback at times. Attentive during psychoeducation and provided insight into obstacles that impede mental wellness. Pt chose to not share with group current mental health reality and desired mental health reality. Did appear attentive to others that shared. Identified barriers to desired reality include: self-sabotage, isolation, people pleasing, and no motivation. Benefited from taking look at current mental health state and obstacles for progress. Pt to continue IOP tx to improve use of healthy coping skills, improve confidence, and prevent decompensation.
--- NOTE | 2024-06-29 11:10 | BH.SGPN.GN ---
Behaviors/Verbalizations/Mental Status: [] Eye contact is good. Motor activity is appropriate. Appearance is casual. Speech is Appropriate. Mood is anxious and dysthymic. Affect is congruent. Thoughts are linear and logical. No evidence of psychosis. Client Response/Progress/Benefit: [] Pt was engaged in group discussions and activity. Worked with peers to identify strategies to help overcome barriers and obstacles to desired reality. Group worked together to develop strategies for the common barriers. Identified personal barriers to desired reality and choose one obstacle to work. Pt stated pt wants to work on barrier of self-sabotoge with plan to remind himself of the consequences of self-sabotoging hoping this will motivate him to change his actions. Pt seemed to benefit from increased knowledge of practical strategies to overcome common barriers to moving forward. Will continue in IOP to prevent decompensation, improve functioning, and increase healthy coping skills. Narrative Note: []
--- NOTE | 2024-07-04 09:05 | BH.SGPN.GN ---
Behaviors/Verbalizations/Mental Status: [] Eye contact is good. Motor activity is appropriate. Appearance is casual. Speech is Appropriate. Mood is euthymic. Affect is full. Thoughts are linear and logical. No evidence of psychosis. Reviewed daily check in sheet and no reports of suicidal ideations or intent. Client Response/Progress/Benefit: [] Pt was an active participant in group discussions. Attentive. Emotion is ?content?. Daily symptom tracker notes 4/5 for depression and anxiety. Utilizing skills outside of program sharing examples of stress and anger management. Feels less withdrawn and more social. Starting to ? feel normal?. Shared that his mental health has been struggling since his father which led to ?being a hermit?. Progress noted. Benefited from group support, encouragement, and feedback. Will continue in IOP to maintain gains, stabilize mood, and improve functioning. Narrative Note: []
--- NOTE | 2024-07-04 10:15 | BH.SGPN.GN ---
Behaviors/Verbalizations/Mental Status: [] Client alert and oriented, casually dressed and groomed. Eye contact good. Motor activity appropriate. Speech within normal limits. Affect congruent, mood euthymic. Thoughts linear, logical, no signs of hallucinations or delusions. Client Response/Progress/Benefit: [] Pt responded well to session AEB sharing and listening attentively to others. Group provided examples of benefits of having social support, including: validation, help in coping with stressors, company, and accountability. Pt also participated in group discussion regarding the barriers to accessing support identifying examples to include: negative thinking, lack of communication, and fear of being a burden or judgement. Shared struggling personally with self-loathing and isolation. Pt participated in experiential activity illustrating the impact communication, boundaries, and patience play in creating healthy support systems. Pt appeared to benefit from increased knowledge of the benefits of social support and greater self-awareness. Pt to continue IOP to improve mood stability, increase consistent use of healthy coping skills to maintain mood stability and promote sobriety, and prevent decompensation. Narrative Note: []
--- NOTE | 2024-07-04 11:15 | BH.SGPN.GN ---
Behaviors/Verbalizations/Mental Status: [] Eye contact is good. Motor activity is appropriate. Appearance is casual. Speech is Appropriate. Mood is depressed/anxious. Affect is congruent. Thoughts are linear and logical. No evidence of psychosis. Client Response/Progress/Benefit: [] Pt participated throughout AEB contributing to discussion, providing personal examples, and taking notes. Attentive and provided input on types and examples of support (emotional, tangible, informational, and social). Pt able to identify current support system and barriers that get in the way of using supports (toxic support, self-loathing, isolation, and lack of awareness). Able to identify aspects in his life which provide support. Will continue in IOP to prevent decompensation, stabilize mood, and increase healthy coping. Narrative Note: []
--- NOTE | 2024-07-05 09:00 | BH.SGPN.GN ---
Behaviors/Verbalizations/Mental Status: []Pt alert and oriented, neatly dressed and groomed. Eye contact good. Motor activity appropriate. Speech within normal limits. Affect congruent, mood anxious. Thoughts linear, logical, no signs of hallucinations or delusions. Reviewed pt?s symptom tracker, no risk for suicidal ideation, plan, or intent 07/05/24. Client Response/Progress/Benefit: []Pt was an active participant in group discussions. Attentive. Able to identify mental health wins including getting to IOP despite having little motivation and following through with his goal to reduce naps. Pt's stressor today is he feels physical symptoms of anxiety, but he is not sure what is triggering this. Pt stated pt is feeling fatigued this morning. Pt receptive to feedback from peers which pt reported was helpful. Progress noted, but pt's stress continues to be an issue. Benefited from group support, encouragement, and feedback. Will continue in IOP to prevent decompensation, increase distress tolerance skills, and improve daily functioning. Narrative Note: []
--- NOTE | 2024-07-05 10:10 | BH.SGPN.GN ---
Behaviors/Verbalizations/Mental Status: [] Client alert and oriented, casually dressed and groomed. Eye contact good. Motor activity appropriate. Speech within normal limits. Affect flat, mood euthymic. Thoughts linear, logical, no signs of hallucinations or delusions. Client Response/Progress/Benefit: [] Client was an active participant in group discussions. Attentive during psychoeducation on 4 types of conflict styles (Competing, Collaborating, Avoiding, and Accommodating). Worked with group to define conflict and identify how conflict is helpful. With peers, pt identified barriers to addressing or managing conflict which included: trauma, unmanaged emotions, and cognitive distortions. Client believes they become defensive when managing conflict at times which has led to additional conflict and damaged relationships. Benefited from group due to increase insight and awareness of benefits to conflict, conflict styles, and obstacles to managing conflict. Will continue in IOP to prevent decompensation, improve mood stability, and increase functioning. Narrative Note: []
--- NOTE | 2024-07-05 11:10 | BH.SGPN.GN ---
Behaviors/Verbalizations/Mental Status: [] Client alert and oriented, casually dressed and groomed. Eye contact good. Motor activity appropriate. Speech within normal limits. Affect congruent, mood euthymic. Thoughts linear, logical, no signs of hallucinations or delusions. Client Response/Progress/Benefit: [] Client engaged in session AEB contributing to discussion and engaging in small group. Attentive during discussion on strategies for more effectively managing conflict in personal life. Client participated in small group for activity and did well practicing how to manage conflict scenarios. Client given handout on [employer] with strategies to to communicate effectively in conflict. Client indicated what needs improvement in conflict for them. Appeared to benefit from gaining strategies to help client better manage conflict. Will continue IOP tx to improve consistent use of healthy coping skills, challenge negative thoughts, and prevent decompensation.
--- NOTE | 2024-07-05 12:07 | PCM.BH.PN ---
Progress Note Progress Note: History of Present Illness/Interim History: The patient is a 23-year-old single, male with a history of bipolar 2 disorder, depression, anxiety, PTSD, ADHD and cocaine/hallucinogen disorder in remission for 8 months who is seen in follow-up at the [facility] behavioral health IOP. I last saw the patient 3 weeks ago and at that time result he was started. The patient states that he took the resulted for 10 days but says that it made his dizziness worse and so he stopped it. According to the staff the patient has been consistent in his attendance and is engaged in the program. Patient feels he is benefiting from the program and feels that he has improved. He remains sober from all drug use. The patient says he has less sadness and only occasional hopelessness now. He denies any passive thoughts of now and also denies suicidal ideation, plan for suicide, homicidal ideation, hallucinations or delusions. He does still worry a little bit and ruminate negatively at times. Laboratory: TSH was normal and vitamin D was quite low at 5. This was discussed with the patient. Current Psychiatric Medications: [] Lamictal 150 mg p.o. twice daily (x 2 years); resulting 0.5 mg which was discontinued after 10 days due to dizziness. Mental Status Examination: [] The patient is a 23-year-old male who appears normal for stated age and is casually dressed and groomed with good hygiene. He is ambulatory with a normal gait and has no psychomotor agitation or retardation. Eye contact is good and speech is normal rate and rhythm and fluent with no pressure. He is cooperative and pleasant during the interview. Mood is mildly depressed. Affect is full and normal. Thought process is goal-directed and organized. Thought content: The patient still has regret over being estranged from his father when his father . There is no evidence of passive thoughts of , suicidal ideation, plan for suicide, homicidal ideation, hallucinations or delusions. Reality testing is intact. Intelligence is above average. Judgment is intact. Insight is fair and improving. Impulsivity is moderate. Diagnoses: [] 1. Bipolar 2 disorder (currently depressed) 2. Generalized anxiety disorder 3. PTSD 4. ADHD 5. 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 He felt safe during the interview and if it anytime he does not feel safe he agrees to let us know or go to the emergency room. The patient refuses to try any other medication and feels that he is improving doing the therapy and group work in the IOP. He will continue his current medication regimen and will follow-up with his outpatient providers and I will see the patient in follow-up while he is in the IOP. He agrees to remain sober from all drug use.
--- NOTE | 2024-07-06 11:37 | BH.MDN_ITS ---
Multi-Disciplinary Note Note 60-min Individual: Time Started:: 09:15 Date: 07/06/24 Purpose of session/treatment goals addressed:: To work on goal #2 of pt's tx plan and to discuss aftercare. Eye Contact:: Good Motor Activity:: Appropriate Appearance:: Casual Speech:: Appropriate and Tangential Mood:: Euthymic and Anxious Affect:: Constricted Thoughts:: Linear, Logical and No evidence of hallucinations/delusions noted Staff Interventions:: thought challenging, motivational interviewing, CBT techniques, mindfulness skills, discharge planning, strengths perspective and other (went over c-ptsd worksheet together and discussed.) Client Response:: Pt responded well to session, open to meeting with therapist. Pt stated he is doing better but he is still struggling with negative thinking and fear of being vulnerable. Pt reviewed the c-ptsd worksheet with therapist and he connected with many of the coping mechanisms. Pt shared he is better now, but when he was younger he partied a lot, lashed out, and was self- destructive. Pt shared he also has learned to fight well and pt stated that this is one of his worries now because I'm the kind of person to fight and not know when to stop. Pt has been doing well to avoid conflict and he shared that there have been some triggers at work, but he feels he is handling it well. Pt has also unexpectedly started catching feelings for a girl he works with. Pt shared he is not sure what to expect as pt is anxious to be in a relationship due to his current mental health and stressors. Pt also stated he has a fear of being vulnerable and fear that good things won't happen for me so pt has urges to self-sabotage at times. Pt stated he has been having urges to end this talking stage with the girl from work because he tells himself it will not work out anyway. Discussed distress tolerance skills that pt can use and has been using such as delay, distract, decide, and talking himself through it. Pt receptive to this and pt receptive to aftercare plan discussed below. Risks/Concerns:: Pt denies any suicidal ideations, plan, or intent. Pt denies any thoughts of . Progress Toward Goals/Plan:: Pt continues to make progress towards tx goals AEB pt's consistent report of using coping skills and medication compliance. Pt also has started talking to a girl a work and he feels good about this. Pt reports he has been working on distress tolerance skills which has helped pt avoid unnecessary conflict at work and home. Pt needs outpatient therapy and he shared he is waiting for [facility] to call him back. Pt also wants to do IOP aftercare. Pt will continue IOP tx to promote mood stability, reduce negative thinking patterns further, and increase self-confidence. Time Stopped:: 10:15
--- NOTE | 2024-07-07 09:05 | BH.SGPN.GN ---
Behaviors/Verbalizations/Mental Status: []? Eye contact is good. Motor activity is appropriate. Appearance is casual. Speech is Appropriate. Mood is content. Affect is congruent. Thoughts are linear and logical. No evidence of psychosis. Reviewed daily check in sheet and no reports of suicidal ideations or intent.? Client Response/Progress/Benefit: []? Pt was an active participant in group discussion. Attentive. Shared with the group mental health wins including getting new tires on his car rather than continuing to avoid doing so. Reports feeling less anxious to drive as a result. Additional win noted as feeling less anxious about upcoming plans to hangout with a coworker. Noted some anxiety however as he has been isolating himself for the last 6 months. Stressor noted as finances and trying to remain patient as he continues to save for things. Progress noted. Benefited from group support, encouragement, and feedback. Will continue in IOP to prevent decompensation, increase healthy coping, and improve communication.? Narrative Note: []
--- NOTE | 2024-07-07 10:10 | BH.SGPN.GN ---
Behaviors/Verbalizations/Mental Status: [] Pt alert and oriented, casually dressed and groomed. Eye contact good. Motor activity appropriate. Speech within normal limits. Affect congruent, mood euthymic, Thoughts linear, logical, no signs of hallucinations or delusions. Client Response/Progress/Benefit: [] Pt receptive to session AEB contributing to group discussion, as well as listening attentively to others, and taking notes. Worked with group to brainstorm the positive and negative aspects of stress on physical and mental health as well as the impact of distress on performance, relationships, and mental health. Pt shared their top stressors to be: work, relationships and hair loss. Shared when feeling overwhelmed with stress pt will abuse drugs and withdraw from others. Benefited from increased awareness of positive and negative stress as well as how stress impact individuals. Will continue in IOP to increase regulate emotions and prevent decompensation. Narrative Note: []
--- NOTE | 2024-07-07 11:10 | BH.SGPN.GN ---
Behaviors/Verbalizations/Mental Status: [] Pt alert and oriented, casually dressed and groomed. Eye contact good. Motor activity appropriate. Speech within normal limits. Affect congruent, mood euthymic, Thoughts linear, logical, no signs of hallucinations or delusions. Client Response/Progress/Benefit: [] Pt was an attentive participant in group discussions and actively engaged during experiential activity, doing well to regulate their emotions throughout the activity and work with peers. Attentive during psychoeducation on the 4 A's (Avoid, adapt, alter, accept) of coping with stress. Shared that they would benefit from a Avoiding stressor approach of leaving earlier to prevent stressor. Was able to identify the connection between the experiential activity and utilization of stress management skills. Benefited from increased awareness of stress management strategies. Pt will continue IOP to increase consistent use of healthy coping skills and prevent decompensation. Narrative Note: []
--- NOTE | 2024-07-12 09:00 | BH.SGPN.GN ---
Behaviors/Verbalizations/Mental Status: [] Eye contact is good. Motor activity is appropriate. Appearance is casual. Speech is Appropriate. Mood is anxious and depressed. Affect is congruent. Thoughts are linear and logical. No evidence of psychosis. Reviewed daily check in sheet and no reports of suicidal ideations or intent. Client Response/Progress/Benefit: [] Pt was an active participant in group discussion. Attentive. Daily symtom tracker notes 4/5 for anxiety and 2/5 for depression. Shared with the group that feels good to get back out there. Feels that he is getting closer to baseline. Decreased isolation, increase work hours, and recently went on a date. Feeling content. Progress noted. Plan to discharge from IOP this week. Benefited from group support, encouragement, and feedback. Will continue in [facility] to prevent decompensation, increase healthy coping, and improve functioning. Narrative Note: []
--- NOTE | 2024-07-12 15:00 | BH.SGPN.GN ---
Behaviors/Verbalizations/Mental Status: [] Eye contact is good. Motor activity is appropriate. Appearance is casual. Speech is Appropriate. Mood is content. Affect is congruent. Thoughts are linear and logical. No evidence of psychosis Client Response/Progress/Benefit: [] Pt responded well to session AEB contributing to small group discussion, taking notes, and listening attentively to others. Group defined anger and discussed the benefits of managed anger and anger as a secondary emotion. Group shared perspective on benefits of anger as advocating for self and getting needs met, as well as a catalyst for change. Pt engaged in group discussion on common underlying emotions that mask as anger. Identified feeling anxious, disappointed, or tired as a common secondary emotion to anger. Appeared to benefit from increased knowledge of the anger cycle as well as personal triggers. Will continue IOP to increase healthy coping, prevent decompensation, and improve functioning. Narrative Note: []
--- NOTE | 2024-07-13 09:02 | BH.SGPN.GN ---
Behaviors/Verbalizations/Mental Status: []Pt alert and oriented, casually dressed and groomed. Eye contact good. Motor activity appropriate. Speech within normal limits. Affect congruent, mood dysthymic, tired. Thoughts linear, logical, no signs of hallucinations or delusions. Reviewed pt?s symptom tracker, no risk for suicidal ideation, plan, or intent 07/13/24 Client Response/Progress/Benefit: []Pt was an active participant in group discussions. Attentive. Able to identify mental health wins including being able to motivate himself to use opposite action and attend groups despite being tired this morning. Reports reminding himself of the benefits in doing so. Additional win noted as getting a larger check this paycheck due to taking on more hours recently. Stressor noted as accidentally wearing his yard work socks today, noting that they are stained which is annoying to him. Pt receptive to feedback from peers which pt reported was helpful. Progress noted. Benefited from group support, encouragement, and feedback. Will continue in IOP to prevent decompensation, continue to gain healthy coping skills, and reduce negative thinking patterns. Narrative Note: []
--- NOTE | 2024-07-13 10:15 | BH.SGPN.GN ---
Behaviors/Verbalizations/Mental Status: []Eye contact is fair. Motor activity is appropriate. Appearance is casual. Speech is Appropriate. Mood is anxious. Affect is constricted. Thoughts are linear and logical. No evidence of psychosis Client Response/Progress/Benefit: [] Pt engaged in session AEB listening attentively to others and providing input throughout. Pt engaged in activity, able to connect how it can be uncomfortable and difficult to accept when things are out of one?s own control. Worked with peer group to identify things in life which are hard to accept and identified personal things that are hard to accept including and loss and ?letting good things happen to me.? Seemed to benefit from increased awareness of the meaning as well as the importance of acceptance. Pt also worked on what acceptance is vs is not for own personal example. Will continue in IOP to promote use of healthy coping skills, improve daily functioning, and further reduce negative thinking patterns. Narrative Note: []
--- NOTE | 2024-07-13 11:10 | BH.SGPN.GN ---
Behaviors/Verbalizations/Mental Status: [] Pt alert and oriented, casually dressed and groomed. Eye contact fair. Motor activity is appropriate. Speech within normal limits. Affect congruent, mood anxious. Thoughts linear, logical, no signs of hallucinations or delusions. Client Response/Progress/Benefit: [] Pt was attentive and engaged participating in discussion on acceptance and the mental health benefits of practicing acceptance. Pt and peers identified what makes acceptance challenging and pt completed a self-reflection exercise on what is hard to accept in pt's life. Pt identified things that are hard to accept. Pt identified an acceptance skill of dialectical thinking to practice Pt appeared to benefit from gaining insight and learning strategies to increase acceptance. Will continue in IOP to prevent decompensation, stabilize mood, and increase healthy coping. Narrative Note: []
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
--- NOTE | 2024-07-18 11:10 | BH.SGPN.GN ---
Behaviors/Verbalizations/Mental Status: [] Pt alert and oriented. Appearance is casual. Eye contact good. Motor activity appropriate. Speech within normal limits. Affect is euthymic. Mood is congruent. Thoughts linear, logical, no signs of hallucinations or delusions. Client Response/Progress/Benefit: [] Pt was engaged during discussion and experiential activity. Completed the worksheet challenging them to develop a personal SMART goal. Pt chose a SMART goal related to gaining some of his weight back. Believes that this will help him gain some confidence back and have increased energy. Identified obstacles such as nausea and no motivation. Benefited from this group by developing a short-term SMART goal related to mental health. Will continue IOP to challenge distorted thoughts, increase consistent use of healthy coping skills, and prevent decompensation.
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
--- NOTE | 2024-07-18 15:23 | BH.AFTERPLAN ---
Aftercare Plan Demographics Treatment End Date:: 07/20/24 Psychiatrist:: Caridad Christensen Psychiatrist Office #:: [id number] [facility]/IOP Therapist:: Anahy Lyons Therapist Phone #:: [phone] Medications Home Medications ondansetron HCl 4 mg tablet 4 mg PO DAILY PRN nausea and vomiting 05/31/24 ergocalciferol (vitamin D2) 1,250 mcg (50,000 unit) capsule (Vitamin D2) 50,000 unit PO QWEEK 3 months #12 caps 07/05/24 bupropion HCl 150 mg tablet,12 hr sustained-release (Wellbutrin SR) 150 mg PO BID 30 days #60 ea 07/19/24 lamotrigine 150 mg tablet (Lamictal) 150 mg PO BID 30 days #60 tabs 07/19/24 Plan Details Progress/Aftercare Plan Details:: Pt has responded well to treatment as evidenced by Pt consistently attending IOP sessions and his reduction of DSM-5 scores since admission. Pt was very engaged during IOP and participated in all sessions. Pt applied coping skills outside of IOP and reports overall his mood is improved and he is functioning better than he was several months ago. Pt?s overall symptom reduction is 33% since admission with anger decreasing by 67%, depression decreasing by 50%, and symptoms of tika decreasing by 75%. Pt has increased his ability to manage stressors, talk about difficult things, and be vulnerable. Pt will follow up with Adelina Reynolds for medication management and Barbara Sanders for individual therapy. Strategies for Success:: 1. Opposite action! Continue to break that cycle of anxiety, guilt, and depression by not letting emotions be the only drivers of your bus. 2. Remember that thoughts are thoughts NOT facts! You have power in if you give thoughts the time of day or not. 3. self-care! You deserve to take time for you and you also deserve to face the not so fun self-care like delegating tasks and advocating for yourself 4. Self-compassion! You are human and you will make a mistake?BUT that doesn?t mean you are a failure or not good enough. Remember there are no bad parts! 5. Continue to practice acceptance and avoiding unnecessary suffering! 6. Practice positive self-talk and keep track of your wins. 7. Remember progress isn?t linear! You may have a setback or bump in the road, but that doesn?t mean you?ve lost all progress. 8. self-reflection and self-awareness. 9. Be understanding with yourself and try to see the whole picture, not just the snapshot. 10. Live in the carlos!! Appointments Appointments/Referrals to Other Services:: 1. Follow up with Barbara Sanders for individual counseling. 2. Adelina Reynolds for medication management 3. IOP aftercare starting 07/27/24 from 2:00-3:30pm for 8 weeks.
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
--- NOTE | 2024-07-19 11:30 | PCM.BH.PN ---
Progress Note Progress Note: History of Present Illness/Interim History: The patient is a 23-year-old single male with a history of bipolar 2 disorder, depression, anxiety, PTSD, ADHD and cocaine/hallucinogen disorder in remission for 8 months who is seen in follow-up at the [facility] behavioral health [facility]. I last saw the patient 2 weeks ago and at that point he had noted improvement in vitamin D was added to his medication regimen for a low lab value of vitamin D. The patient according to staff has been consistent in his attendance and engaged in the program and has made great improvement. The patient states that he is looking forward to discharging soon and returning to work full-time although he plans to attend the aftercare program here. The patient request to be given a prescription for Zyban to in order to quit vaping nicotine. He has taken this in the past and tolerated it well. He denies passive thoughts of , suicidal ideation, plan for suicide, homicidal ideation, hallucinations or delusions. Current Psychiatric Medications: [] Lamictal 150 mg p.o. twice daily; vitamin D2 50,000 units once a week for 3 months (started 2 weeks ago). Mental Status Examination: [] The patient is a 23-year-old male who appears normal for stated age and is casually dressed and groomed with good hygiene. He has no psychomotor agitation or retardation. Speech is normal rate and rhythm and fluent with no pressure. Eye contact is good. He is cooperative during the interview. Mood is approaching euthymia. Affect is full and normal. Thought process is goal-directed and organized. Thought content: The patient wishes to quit smoking. There is no evidence of passive thoughts of , suicidal ideation, plan for suicide, homicidal ideation, hallucinations or delusions. Reality testing is intact. Intelligence is above average. Judgment is intact. Insight is good. Impulsivity is moderate. Diagnoses: [] 1. Bipolar 2 disorder 2. Generalized anxiety disorder 3. PTSD 4. ADHD 5. 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 Nicotine use disorder Plan: [] The patient will be discharged possibly tomorrow from the [facility] as his mental health symptoms have vastly improved. He felt safe during the interview and if it anytime he does not feel safe he has agreed to let us know or go to the emergency room. The patient agrees to try Zyban or Wellbutrin SR 150 mg p.o. twice daily in order to quit smoking. Discussion was had about how he should quit smoking 1 to 2 weeks after starting this medication. He will continue to stay on the medication for 7 to 9 weeks and will follow-up with his outpatient provider who will help him decide this. He understands that Wellbutrin could cause some cycling of his hypomania at times but he has taken it before and says that did not happen. The risk, options, possible complications and side effects of Wellbutrin and Lamictal were discussed with the patient and he understands and accepts these. He will continue to follow-up with his outpatient providers. He will be discharged tomorrow and plans to do the aftercare program.
--- NOTE | 2024-07-20 09:05 | BH.SGPN.GN ---
Behaviors/Verbalizations/Mental Status: []? Pt alert and oriented, casually dressed and groomed. Eye contact good. Motor activity appropriate. Speech within normal limits. Affect congruent, mood content. Thoughts linear, logical, no signs of hallucinations or delusions. Reviewed pt?s symptom tracker, no risk for suicidal ideation, plan, or intent 07/20/24.?? Client Response/Progress/Benefit: []Pt was an active participant in group discussions. Attentive. Able to identify mental health wins including today being his last day and being able to successfully complete the program. Reviewed several skills to continue to implement in order to maintain progress. Additional win noted as starting smoking cessation. Current stressor noted as having to drive in [place] hour traffic yesterday. Discussed skill he used to maintain calm. Benefited from group support, encouragement, and feedback. Will d/c from IOP and continue in outpatient tx to prevent decompensation, promote mood stability, and maintain gains.? Narrative Note: []
--- NOTE | 2024-07-20 09:13 | BH.DS_ITS ---
Discharge Summary Demographics Date of Admission:: 05/30/24 Discharge Date: 07/20/24 Presenting Problems at Admission:: Pt is a 23 year-old male with a history of bipolar II disorder, anxiety, PTSD, and polysubstance use disorder. Pt was referred to [facility] by a family friend due to worsening symptoms of depression following the of pt's estranged father. Pt's symptoms have been impacting his ability to function and he recently had to drop out of college. At admission, pt endorses a depressed mood, excessive guilt, passive SI, lack of energy, lack of motivation, feeling like a burden, and anhedonia. Pt also reports irritability, restlessness, and isolation. 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 Pt no longer meets criteria for [facility] level of care and will discharge to outpatient counseling and [facility] aftercare group. Treatment Progress During Treatment & Response: Pt has responded well to treatment as evidenced by Pt consistently attending IOP sessions and his reduction of DSM-5 scores since admission. Pt was very engaged during IOP and participated in all sessions. Pt applied coping skills outside of IOP and reports overall his mood is improved and he is functioning better than he was several months ago. Pt?s overall symptom reduction is 33% since admission with anger decreasing by 67%, depression decreasing by 50%, and symptoms of tika decreasing by 75%. Pt has increased his ability to manage stressors, talk about difficult things, and be vulnerable. Pt will follow up with Adelina Reynolds for medication management and Barbara Sanders for individual therapy. Issues Still to be Addressed:: Grief, childhood trauma, and urges to self- sabotage. Pt can also benefit from further decreasing anxiety and pt would like to quit vaping. Discharge Recommendations/Instructions:: Pt will follow up with Barbara Sanders for individual therapy starting in July. Pt will also follow up with Adelina Reynolds for medication management through [facility]. Pt recently got his medications refilled, but he will see Adelina in the next few months. Pt will begin IOP aftercare group on 07/27/24. Discharge Handout
--- NOTE | 2024-07-20 10:00 | BH.SGPN.GN ---
Behaviors/Verbalizations/Mental Status: [] Pt alert and oriented, casually dressed and groomed. Eye contact good. Motor activity appropriate. Speech within normal limits. Mood:euthymic. Affect: full. Thoughts linear, logical, no signs of hallucinations or delusions. Client Response/Progress/Benefit: [] Pt was an active participate during group discussions. Attentive during psychoeducation on self-sabotage and its impact on mental health. Worked with peers to identify different types of self-sabotage such as; procrastination, self-medicating, unrealistic expectations, people-pleasing, and poor boundaries. Worked with peers to identify reasons for self-sabotage behaviors (feels comfortable, fear of failure, false sense of control, low self-worth, and fear of being vulnerable). Seemed to benefit from gaining awareness about the self-sabotage. Pt to continue IOP tx to maintain gains, increase healthy coping, and improve functioning. Narrative Note: []
--- NOTE | 2024-07-20 11:10 | BH.SGPN.GN ---
Behaviors/Verbalizations/Mental Status: []Pt alert and oriented, neatly dressed and groomed. Eye contact good. Motor activity appropriate. Speech within normal limits. Affect congruent, mood euthymic. Thoughts linear, logical, no signs of hallucinations or delusions. Client Response/Progress/Benefit: []Pt responded well to session, attentive and providing input. Pt worked on his mental health wellness garden picture and discussed things that contribute to mental wellness in his life. With peers, pt discussed things that would sabotage one's mental health wellness and added it to the garden metaphor. Pt identified things pt personally does to sabotage as drug use and neglecting relationships Pt attentive during psychoeducation on ways to reduce self-sabotage. Pt appeared to benefit from learning skills and gaining awareness of self-sabotaging behaviors. Pt will continue IOP tx to promote healthy coping, challenge negative thoughts, and prevent decompensation.
== END 2024-07-20 12:23 | disposition home or self-care (01) ==
LOC: BHIOP 07:07
PROVIDERS: PCP Pediatrics; Referring Provider Psychiatry & Neurology Psychiatry; Visit Provider Psychiatry & Neurology Psychiatry
DX: F31.81 Bipolar II disorder (principal); F41.1 Generalized anxiety disorder; F43.10 Post-traumatic stress disorder, unspecified; F90.9 Attention-deficit hyperactivity disorder, unspecified type; F12.90 Cannabis use, unspecified, uncomplicated; F14.91 Cocaine use, unspecified, in remission
CPT/HCPCS: S9480; 90834; 90837; 90853

== ENCOUNTER → 2024-06-29 | Outpatient (CLI) | payer BC, SELFPAY ==
[2024-06-29 13:35] LABS: Vitamin D,25 Hydroxy 5.1 ng/mL
== END | disposition home or self-care (01) ==
LOC: LAB 12:20
PROVIDERS: PCP Pediatrics; Referring Provider Psychiatry & Neurology Psychiatry; Visit Provider Psychiatry & Neurology Psychiatry
DX: E55.9 Vitamin D deficiency, unspecified (principal)
CPT/HCPCS: 36415; 82306; 84443

== ENCOUNTER 2024-07-27 09:45 | Outpatient (RCR) | payer BC, SELFPAY ==
--- NOTE | 2024-07-27 14:00 | BH.COMM ---
Communication Note Communication with Client Communication Note: Patient completed IOP and presents today to start relapse prevention group which meets once weekly (1.5 hours) for 8 weeks. Case discussed with Dr. Nolan with plan to admit with dx of F31.88
--- NOTE | 2024-07-27 16:23 | BH.MTP ---
Master Treatment Plan Patient Information Program Physician:: Dr. 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 Objectives Objective #1: Stated Objective: Client will continue to consistently apply healthy coping skills to maintain progress made in IOP tx. Interventions: Through group therapy, client will review warning signs and triggers as well as healthy coping skills learned in IOP tx to successfully maintain gains while transitioning into outpatient therapy. Discharge Criteria: Client will have accomplished this goal when client's score on the DSM-5 cross-cutting measure has maintained or reduced over a 8 week period. Target Date: 09/21/24 Review Date: 08/24/24 Status: open Objective #2: Stated Objective: Client will learn and utilize 2-3 maintenance strategies to prevent decompensation from original IOP DSM-5 scores. Interventions: Through group therapy, client will be provided with education on healthy maintenance behaviors, relapse prevention techniques, and healthy coping strategies. Discharge Criteria: Client will have accomplished this goal when can report using at least 2 maintenance skills to prevent decompensation compared to original IOP DSM-5 scores Target Date: 09/21/24 Review Date: 08/24/24 Status: open
--- NOTE | 2024-08-03 14:00 | BH.SGPN.GN ---
Behaviors/Verbalizations/Mental Status: []Client alert and oriented, casually dressed and groomed. Eye contact good. Motor activity appropriate. Speech within normal limits. Affect congruent, mood content. Thoughts linear, logical, no signs of hallucinations or delusions. Client Response/Progress/Benefit: []Pt responded well to session AEB sharing and listening attentively to others. Pt followed up with all mental health appointments this week and pt is taking medications regularly. Pt stated self-care, thought challenging, and healthy communication skills as pt?s primary coping skills this week. Pt participated in group discussion defining vulnerability, how and why we avoid it, and the benefits. Pt was an active participant and provided personal examples of being vulnerable and the positive things that came with this. Pt stated that she would like to practice vulnerability this week by having a conversation with his girlfriend regarding his past trauma. Will continue aftercare treatment to reinforce healthy coping skills and promote gains. Narrative Note: []
--- NOTE | 2024-08-10 14:00 | BH.SGPN.GN ---
Behaviors/Verbalizations/Mental Status: []Pt alert and oriented, casually dressed and groomed. Eye contact good. Motor activity appropriate. Speech within normal limits. Affect congruent, mood euthymic. Thoughts linear, logical, no signs of hallucinations or delusions. Client Response/Progress/Benefit: [] Pt receptive of session, engaged throughout. Pt has been reporting utilizing healthy coping skills outside of aftercare. Pt did not have sessions with outpatient providers this week. These skills included: deep breathing, exercise, DDD, taking a break, and communicating with supports. Receptive of discussion on distress tolerance and emotional urges. Pt contributed to the discussion of distress tolerance and how building distress tolerance can help improve mood stability and resilience. Pt wants to keep building distress tolerance by not lashing out and being aggressive when he gets triggered at work. Pt seemed to benefit from support from peers and increasing understanding of distress tolerance. Will continue IOP aftercare to promote mood stability and reinforce healthy coping skills. ? Narrative Note: []
== END 2024-08-18 23:59 ==
LOC: BHOG 09:45
PROVIDERS: PCP Pediatrics; Referring Provider Psychiatry & Neurology Psychiatry; Visit Provider Psychiatry & Neurology Psychiatry
DX: F31.81 Bipolar II disorder (principal)
CPT/HCPCS: 90853

== ENCOUNTER 2024-08-21 07:33 | Outpatient (RCR) | payer BC, SELFPAY ==
--- NOTE | 2024-08-24 14:00 | BH.SGPN.GN ---
Behaviors/Verbalizations/Mental Status: []Pt alert and oriented, casually dressed and groomed. Eye contact good. Motor activity appropriate. Speech within normal limits. Affect congruent, mood drained. Thoughts linear, logical, no signs of hallucinations or delusions. Client Response/Progress/Benefit: []Pt responded well to session AEB sharing and listening attentively to others. Pt has scheduled outpatient mental health appointments for weekly counseling and regular med management and reports consistent medication compliance. Pt reports using skills of healthy distraction, opposite action, self-compassion, and goal setting to maintain mood stability. Pt participated in group discussion defining affirmations and why they are important. Pt provided insight throughout clinician?s presentation of tips for writing personal affirmations and wrote their own affirmations, including ?I am worthy of love? and ?It's okay to voice a concern?. Pt appeared to benefit from increased knowledge of affirmation writing skills and creating their own affirmation statements to remind themselves of outside tx environment. Will continue aftercare tx to promote consistent mental health maintenance and prevent decompensation. Narrative Note: []
--- NOTE | 2024-08-24 15:27 | BH.TPR ---
Treatment Plan Review Demographics Date of Admission:: 07/27/24 Date of Treatment Plan Review:: 08/24/24 Admitting Diagnoses:: Bipolar II disorder, F 31.81; Generalized anxiety disorder; PTSD; ADHD; Cocaine and hallucinogen use disorder in full remission; Cannabis use disorder Current Diagnoses:: Bipolar II disorder, F 31.81; Generalized anxiety disorder; PTSD; ADHD; Cocaine and hallucinogen use disorder in full remission; Cannabis use disorder Patient Status Patient's Response to Treatment:: Pt continues to respond well to treatment AEB pt's consistent attendance, ongoing attentiveness and engagement in group discussions, and continued reporting use of skills outside treatment environment. Pt's symptoms are still 40% lower than they were at IOP admission. Status of Current Problems and Symptoms: Pt's symptoms are continuing to decrease since IOP discharge and pt reports benefitting from the maintenance and accountability of aftercare group. Pt has ongoing stressors with co-workers but pt feels that he managing these much better than pt has in the past. Progress Problem #1: Problem Name:: Pt will maintain or see a reduction in sx Status of Goals:: Obj 1 - Complete with maintenance encouraged. Pt's depression decreased by 75% compared to IOP admission and anger has decreased by 33% compared to IOP admission. Pt's anxiety is up slightly, which pt contributes to his current co-worker stress. Obj 2 - complete with ongoing work encouraged. Pt had been reporting using opposite action, self-compassion, affirmations, and dialectical thinking. Pt is also working on being more vulnerable with his girlfriend. Team Recommendations:: Recommended client continue IOP aftercare group in addition to attending regular outpatient counseling in order to maintain gains. Pt also recommended to continue working on self-compassion, practice self-care, and setting realistic goals.
== END 2024-09-18 23:59 ==
LOC: BHOG 07:33
PROVIDERS: PCP Pediatrics; Referring Provider Psychiatry & Neurology Psychiatry; Visit Provider Psychiatry & Neurology Psychiatry
DX: F31.81 Bipolar II disorder (principal); F41.1 Generalized anxiety disorder; F43.10 Post-traumatic stress disorder, unspecified; F90.9 Attention-deficit hyperactivity disorder, unspecified type; F12.90 Cannabis use, unspecified, uncomplicated; F14.91 Cocaine use, unspecified, in remission; F16.91 Hallucinogen use, unspecified, in remission
CPT/HCPCS: 90853

== ENCOUNTER 2024-09-19 07:11 | Outpatient (RCR) | payer BC, SELFPAY ==
--- NOTE | 2024-10-05 15:30 | BH.DS_ITS ---
Discharge Summary Demographics Date of Admission:: 07/27/24 Discharge Date: 10/05/24 Presenting Problems at Admission:: Pt admitted to [facility] level of care due to grief, anger, depression, and overall anxiety symptoms hindering pt's ability to function at his baseline. Pt was admitted to [facility] aftercare to maintain gains made in IOP tx, further reduce symptoms, and improve distress tolerance. Discharge Diagnoses:: Bipolar II disorder, F 31.81; Generalized anxiety disorder; PTSD; ADHD; Cocaine and hallucinogen use disorder in full remission; Cannabis use disorder Reason for Discharge:: Pt has accomplished tx goals AEB ability to maintain mood stability and gains made in IOP. Treatment Progress During Treatment & Response: Pt responded well to treatment AEB pt's consistent attendance, ongoing attentiveness and engagement in group discussions, and continued reporting use of skills outside treatment environment. Pt did not complete a DSM-5 assessment, so there is no data to compare. However, pt was consistently reporting increased ability to manage symptoms and improved mood. Pt got a new job while in aftercare and he was maintaining a romantic relationship. Pt has been able to maintain consistent progress for an additional 8 weeks following IOP tx. Issues Still to be Addressed:: Grief, childhood trauma, and urges to self- sabotage. Pt can also benefit from further decreasing anxiety and pt would like to quit vaping. Discharge Recommendations/Instructions:: Pt will follow up with Barbara Sanders for individual therapy starting in July. Pt will also follow up with Adelina Reynolds for medication management through [facility]. Discharge Handout
--- NOTE | 2024-10-05 15:30 | BH.DS_ITS ---
Discharge Summary Demographics Date of Admission:: 07/27/24 Discharge Date: 10/05/24 Presenting Problems at Admission:: Pt admitted to [facility] level of care due to grief, anger, depression, and overall anxiety symptoms hindering pt's ability to function at his baseline. Pt was admitted to [facility] aftercare to maintain gains made in IOP tx, further reduce symptoms, and improve distress tolerance. Discharge Diagnoses:: Bipolar II disorder, F 31.81; Generalized anxiety disorder; PTSD; ADHD; Cocaine and hallucinogen use disorder in full remission; Cannabis use disorder Reason for Discharge:: Pt has accomplished tx goals AEB ability to maintain mood stability and gains made in IOP. Treatment Progress During Treatment & Response: Pt responded well to treatment AEB pt's consistent attendance, ongoing attentiveness and engagement in group discussions, and continued reporting use of skills outside treatment environment. Pt did not complete a DSM-5 assessment, so there is no data to compare. However, pt was consistently reporting increased ability to manage symptoms and improved mood. Pt got a new job while in aftercare and he was maintaining a romantic relationship. Pt has been able to maintain consistent progress for an additional 8 weeks following IOP tx. Issues Still to be Addressed:: Grief, childhood trauma, and urges to self- sabotage. Pt can also benefit from further decreasing anxiety and pt would like to quit vaping. Discharge Recommendations/Instructions:: Pt will follow up with Barbara Sanders for individual therapy starting in July. Pt will also follow up with Adelina Reynolds for medication management through [facility]. Discharge Handout
== END 2024-10-05 15:23 | disposition home or self-care (01) ==
LOC: BHOG 07:11
PROVIDERS: PCP Pediatrics; Referring Provider Psychiatry & Neurology Psychiatry; Visit Provider Psychiatry & Neurology Psychiatry
DX: F31.81 Bipolar II disorder (principal); F41.1 Generalized anxiety disorder; F43.10 Post-traumatic stress disorder, unspecified; F90.9 Attention-deficit hyperactivity disorder, unspecified type; F14.91 Cocaine use, unspecified, in remission; F16.91 Hallucinogen use, unspecified, in remission; F12.90 Cannabis use, unspecified, uncomplicated
CPT/HCPCS: 90853